=== PATIENT | female | born 1965 | race Caucasian/White ===

== ENCOUNTER 2017-01-03 16:25 | Emergency (ER) | payer MEDICAID ==
[~2017-01-03] VITALS: Ht 160 cm; Wt 75.1 kg
[~2017-01-03 16:25] MED LIST: ATORVASTATIN PO; HCTZ PO; LISINOPRIL PO; METFORMIN PO; OSCD PO; [UNRECOGNIZED DRUG - OTHER]
[2017-01-03 17:54] VITALS: BP 143/82
== END 2017-01-03 17:54 | disposition home or self-care (01) ==
LOC: ED 16:25
DX: L25.9 Unspecified contact dermatitis, unspecified cause (principal); E11.9 Type 2 diabetes mellitus without complications; I10 Essential (primary) hypertension
CPT/HCPCS: J7512; Q0163

== ENCOUNTER 2017-02-21 15:39 | Emergency (ER) | payer MEDICAID ==
[~2017-02-21] VITALS: Ht 160 cm; Wt 74.4 kg
[2017-02-21 16:26] VITALS: BP 129/74; Ht 160 cm; Wt 74.4 kg
== END 2017-02-21 17:20 | disposition home or self-care (01) ==
LOC: ED 15:39
DX: R05 Cough (principal); R09.81 Nasal congestion; M79.1 Myalgia